=== PATIENT | female | born 1975 | race Caucasian/White ===

== ENCOUNTER 2018-08-02 10:30 | Inpatient (IN) | payer BC ==
[~2018-08-02] VITALS: Ht 175.3 cm; Wt 75.0 kg
[~2018-08-02 10:30] MED LIST: GABA300C10 PO; LEVO88TA4 PO; LIOT5TAB10 PO; METF500T17 PO; POLY17PO5 PO; PRAV20TA2 PO; SPIR25TA5 PO; WHEA1POW5 PO
[2018-08-02] MEDS ORDERED: MIDAZOLAM 1 MG/ML, 2ML ONE (10:49)
[2018-08-02 10:52] VITALS: BP 115/81
[2018-08-02] MEDS ORDERED: FENTANYL PF 250 MCG/5ML ONE (10:53)
[2018-08-02 11:00] LABS: HCG UR SG 1.013 (1.003-1.030)
[2018-08-02] MEDS ORDERED: GABAPENTIN 300 MG CAPSULE PO ONE (11:00)
[2018-08-02] MEDS ORDERED: OXYcodone IR 5MG TABLET PO ONE (11:00)
[2018-08-02] MEDS ORDERED: ACETAMINOPHEN 500 MG TABLET PO ONE (11:00)
[2018-08-02] MEDS: LACTATED RINGERS 1,000 ML IV SCH ×2 (11:05→11:15)
[2018-08-02] MEDS ORDERED: BACITRACIN 50,000 UNIT ONE (11:54)
[2018-08-02] MEDS ORDERED: BUPIVACAINE/EPI 0.5% 1:200K ONE (11:54)
[2018-08-02] MEDS ORDERED: MINERAL OIL 10 ML VIAL MC ONE (11:54)
[2018-08-02] MEDS ORDERED: THROMBIN 20,000 UNIT VIAL TP ONE (12:10)
[2018-08-02] MEDS ORDERED: PROPOFOL 10 MG/ML, 50ML ONE (12:17)
[2018-08-02] MEDS ORDERED: EPHEDRINE 50 MG/ML, 1ML ONE (12:17)
[2018-08-02] MEDS ORDERED: PROMETHAZINE 25 MG/ML, 1ML IV PRN (13:00)
[2018-08-02] MEDS ORDERED: DIAZEPAM 5 MG/ML, 2ML IVPush PRN (13:00)
[2018-08-02] MEDS ORDERED: ONDANSETRON 2MG/ML, 2ML IV PRN ×2 (13:00→17:00)
[2018-08-02] MEDS ORDERED: OXYcodone 5 MG/5 ML ORAL.SOL UDC PO PRN (13:00)
[2018-08-02] MEDS ORDERED: LORazepam 2 MG/ML, 1ML IVPush PRN (13:00)
[2018-08-02] MEDS ORDERED: ONDANSETRON ODT 8 MG PO PRN (13:00)
[2018-08-02] MEDS ORDERED: PROPOFOL 10 MG/ML, 20ML ONE (13:02)
[2018-08-02] MEDS ORDERED: NEOSTIGMINE 1 MG/ML, 10ML ONE (13:02)
[2018-08-02] MEDS ORDERED: ROCURONIUM 10MG/ML,5ML ONE (13:02)
[2018-08-02] MEDS ORDERED: DEXAMETHASONE 4 MG/ML, 1ML ONE (13:02)
[2018-08-02] MEDS ORDERED: CEFAZOLIN 1,000 MG ONE (13:02)
[2018-08-02] MEDS ORDERED: ONDANSETRON 2MG/ML, 2ML ONE (13:02)
[2018-08-02] MEDS ORDERED: SUCCINYLCHOLINE 20 MG/ML, 10ML ONE (13:02)
[2018-08-02] MEDS ORDERED: HYDROmorphone 1 MG/ML, 1ML VIAL ONE (13:51)
[2018-08-02] MEDS ORDERED: FENTANYL PF 100 MCG/2ML ONE (13:51)
[2018-08-02] MEDS: FENTANYL PF 100 MCG/2ML IV PRN ×2 (13:55→14:04)
[2018-08-02] MEDS ORDERED: OXYcodone 5 MG/5 ML ORAL.SOL UDC ONE (14:06)
[2018-08-02] MEDS: HYDROmorphone 2 MG/ML, 1ML IVPush PRN ×2 (14:12→14:20)
[2018-08-02] MEDS ORDERED: DIPHENHYDRAMINE 50 MG/ML, 1ML ONE (14:31)
[2018-08-02] MEDS ORDERED: DIPHENHYDRAMINE 50 MG/ML, 1ML IVPush PRN (15:00)
[2018-08-02] MEDS ORDERED: TIZANIDINE 4MG TABLET PO PRN (16:45)
[2018-08-02] MEDS ORDERED: CEFAZOLIN PMX 1GM/50ML 50 ML IVPB SCH (17:00)
[2018-08-02] MEDS ORDERED: BISACODYL 10 MG SUPP PR PRN (17:00)
[2018-08-02] MEDS ORDERED: PROMETHAZINE 25 MG/ML, 1ML IM PRN (17:00)
[2018-08-02] MEDS ORDERED: LABETALOL 5MG/ML, 20ML IV PRN (17:00)
[2018-08-02] MEDS ORDERED: MAGNESIUM HYDROXIDE 8%, 30ML UDC PO PRN (17:00)
[2018-08-02] MEDS: NS + 20MEQ KCL 1,000 ML IV SCH (17:00)
[2018-08-02] MEDS ORDERED: POLYETHYLENE GLYCOL 17 GM PACKET PO PRN (17:00)
[2018-08-02] MEDS: metFORMIN 500 MG TABLET PO SCH (18:28)
[2018-08-02] MEDS: OXYcodone IR 5MG TABLET PO PRN (18:28)
[2018-08-02] MEDS: morphine SULFATE 10 MG/ML, 1ML IV PRN (20:28)
[2018-08-02] MEDS: DIPHENHYDRAMINE 50 MG/ML, 1ML IVPush PRN ×2 (20:28→22:49)
[2018-08-02] MEDS: LIOTHYRONINE 5 MCG TABLET PO SCH (20:29)
[2018-08-02] MEDS: CEFAZOLIN PMX 1GM/50ML 50 ML IVPB SCH (20:35)
[2018-08-02] MEDS ORDERED: PRAVASTATIN 20 MG TABLET PO SCH (21:00)
[2018-08-02] MEDS ORDERED: GABAPENTIN 400 MG CAPSULE PO SCH (21:00)
[2018-08-02 22:20] VITALS: BP 103/65
[2018-08-02 22:28] VITALS: BP 103/65
[2018-08-02 22:34] VITALS: BP 103/65
[2018-08-03 00:10] VITALS: BP 108/65
[2018-08-03] MEDS: morphine SULFATE 10 MG/ML, 1ML IV PRN ×2 (00:27→05:09)
[2018-08-03] MEDS: OXYcodone IR 5MG TABLET PO PRN ×2 (02:37→08:43)
[2018-08-03 04:17] VITALS: BP 112/72
[2018-08-03] MEDS: CEFAZOLIN PMX 1GM/50ML 50 ML IVPB SCH (05:09)
[2018-08-03] MEDS: DIPHENHYDRAMINE 50 MG/ML, 1ML IVPush PRN ×3 (05:09→14:58)
[2018-08-03] MEDS: NS + 20MEQ KCL 1,000 ML IV SCH ×2 (05:30→12:34)
[2018-08-03] MEDS ORDERED: LEVOTHYROXINE 88 MCG TABLET PO SCH (06:00)
[2018-08-03 08:09] VITALS: BP 99/65
[2018-08-03] MEDS: GABAPENTIN 300 MG CAPSULE PO SCH ×2 (08:42→11:35)
[2018-08-03] MEDS: LIOTHYRONINE 5 MCG TABLET PO SCH (08:42)
[2018-08-03] MEDS: metFORMIN 500 MG TABLET PO SCH (08:42)
[2018-08-03] MEDS ORDERED: SENNA/DOCUSATE TABLET PO SCH (09:00)
[2018-08-03] MEDS ORDERED: SPIRONOLACTONE 50 MG TABLET PO SCH (09:00)
[2018-08-03] MEDS ORDERED: HYDROmorphone 2 MG/ML, 1ML IV PRN (09:30)
[2018-08-03] MEDS: HYDROmorphone 2MG TABLET PO PRN ×2 (10:09→13:59)
[2018-08-03] MEDS ORDERED: HYDR2TAB29 PO (14:45)
[2018-08-03] MEDS ORDERED: TIZA4TAB PO (14:48)
[2018-08-03] MEDS ORDERED: DIPH25CA61 PO (14:50)
[2018-08-03 14:56] VITALS: BP 99/61
== END 2018-08-03 15:58 | disposition home or self-care (01) | DRG 473 ==
LOC: ORIP 10:30 → 4NOR 16:05 → DCLOUNGE 08-03 15:42
PROVIDERS: ADMIT Neurological Surgery; ATTEND Neurological Surgery
PROC: 0RG10A0 Fusion of Cervical Vertebral Joint with Interbody Fusion Device, Anterior Approach, Anterior Column, Open Approach (ICD-10-PCS; principal; 2018-08-03)
PROC: 0RP10JZ Removal of Synthetic Substitute from Cervical Vertebral Joint, Open Approach (ICD-10-PCS; 2018-08-03)
PROC: 01N10ZZ Release Cervical Nerve, Open Approach (ICD-10-PCS; 2018-08-03)
DX: M48.02 Spinal stenosis, cervical region (principal); M54.12 Radiculopathy, cervical region; J45.909 Unspecified asthma, uncomplicated; E78.00 Pure hypercholesterolemia, unspecified; K21.9 Gastro-esophageal reflux disease without esophagitis; F41.9 Anxiety disorder, unspecified; E03.9 Hypothyroidism, unspecified; Z87.891 Personal history of nicotine dependence; Z83.3 Family history of diabetes mellitus
CPT/HCPCS: 72040; 81025; G0378; J0690; J1100; J1170; J2250; J2405; J2550; J2704; J2710; J3010; J0330; J1200; J2270; J7120

== ENCOUNTER 2020-03-16 18:25 | Emergency (ER) | payer BC ==
[~2020-03-16] VITALS: Ht 175.3 cm; Wt 79.2 kg
[~2020-03-16 18:25] MED LIST changes: +DIPH25CA61 PO; +HYDR2TAB29 PO; +TIZA4TAB2 PO
--- NOTE | 2020-03-16 20:23 | NUR ---
INITIAL PT CONTACT. 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 PT NAD, VSS. CURRENTLY C/O HAWKINS ON LEFT MANDAEISM AND MILD EYE DROOP. PT DENIES ANY NEEDS AT THIS TIME. CALL LIGHT AND PERSONAL BELONGINGS WITHIN REACH. PIV PLACED. CONTINUOUS PULSE OX IN PLACE.
--- NOTE | 2020-03-16 20:23 | NUR ---
pt to room from lobby
--- NOTE | 2020-03-16 20:57 | NUR ---
PT TO IMAGING
--- NOTE | 2020-03-16 21:12 | NUR ---
PT RETURNED FROM IMAGING
[2020-03-16] MEDS ORDERED: OMNIPAQUE 350 MG/ML, 100ML BOTTLE ONE (21:23)
[2020-03-16 22:00] VITALS: BP 142/83
--- NOTE | 2020-03-16 22:09 | NUR ---
PT SITTING UPRIGHT ON [place], JIA, VSS. PT DENIES ANY NEEDS AT THIS TIME. CONTINUOUS PULSE OX IN PLACE. WILL CONTINUE TO MONITOR.
--- NOTE | 2020-03-16 22:29 | NUR ---
Patient given discharge instructions and they have confirmed that they understand the instructions. Patient ambulatory with steady gait.
== END 2020-03-16 22:34 | disposition home or self-care (01) ==
LOC: ED 21:30
DX: G44.219 Episodic tension-type headache, not intractable (principal)
CPT/HCPCS: 70450; 70496; 70498; 99285; Q9967